=== PATIENT | female | born 1940 | race Caucasian/White ===

== ENCOUNTER 2022-09-27 09:19 | Outpatient (CLI) | payer MEDICARE, OTHER | END 2022-09-27 23:59 | disposition home or self-care (01) | LOC: LAB 09:19 | PROVIDERS: ATTEND Dentist Oral and Maxillofacial Surgery | DX: Z01.812 Encounter for preprocedural laboratory examination (principal); Z20.822 Contact with and (suspected) exposure to COVID-19 | CPT/HCPCS: U0003; C9803 ==

== ENCOUNTER 2022-10-01 05:33 | Inpatient (IN) | payer MEDICARE, OTHER ==
[2022-10-01] MEDS ORDERED: LIDOCAINE 2%-EPI 1:100,000 30 ML VIAL ONE (06:43)
[2022-10-01] MEDS ORDERED: VANCOMYCIN 1 GM VIAL ONE (06:43)
[2022-10-01] MEDS ORDERED: dexaMETHasone SOD PHOSPHATE 10 MG/ML VIAL ONE (06:44)
[2022-10-01] MEDS ORDERED: OXYMETAZOLINE HCL NASAL SPRAY 30 ML BOTTLE NS ONE (07:16)
[2022-10-01] MEDS ORDERED: FENTANYL PF 100MCG/2ML AMPUL ONE (07:16)
[2022-10-01] MEDS ORDERED: ROCURONIUM BROMIDE 50 MG/5 ML ONE (07:16)
[2022-10-01] MEDS ORDERED: FAMOTIDINE/PF INJ 20 MG/2 ML VIAL IV ONE (07:16)
--- NOTE | 2022-10-01 07:40 | NUR ---
OPENING NOTE DAY SURGERY: PATIENT IN SURGERY NOT IN THERE ROOM AT THIS TIME.
--- NOTE | 2022-10-01 07:50 | NUR ---
MS CONVEYOR BELT REPAIRER NOTE PATIENT ARRIVED TO THE UNIT AT AROUND 0550, TOGETHER WITH HER , AMBULATORY. PATIENT IS SCHEDULED FOR SURGERY TODAY UNDER DR. ROLLE. ALERT AND ORIENTED X4. ABLE TO COMMUNICATE NEEDS WITH THE STAFFS. DENIES ANY PAIN OR DISCOMFORT. EXPLAINED ADMISSION PROCESS. CONSENT FOR PROCEDURE SIGNED AND SECURED. VITALS TAKEN AND WNL. STARTED IV LING ON RIGHT FOREARM 20G-SL. ALL BELONGINGS AND VALUABLES WERE TAKEN BY H ER JASBIR. MAINTAINED ON NPO. SAFETY MEASURES IN PLACE. KEPT BED IN LOCKED AND IN LOW POSITION. SIDE RAILS UP X2. ADVISED TO USE THE CALL LIGHT WHEN IN NEED OF ASSISTANCE. ALL NURSING NEEDS ATTENDED. ENDORSEMENT GIVEN TO RAVEN LEVY. PATIENT WAS PICKED UP AT AROUND 0700, IN STABLE CONDITION.
[2022-10-01] MEDS ORDERED: HYDROMORPHONE 1 MG/1 ML DISP.SYRIN ONE (10:03)
--- NOTE | 2022-10-01 11:20 | NUR ---
POST OP NOTE DAY SURGERY: RECEIVED PATIENT VIA BED FROM THE OR. REPORT WAS GIVEN BY CAREN FAJARDO. PATIENT A/O x4 ABLE TO MAKE NEEDS KNOWN. ORIENTED TO ROOM AND CALL LIGHT, ACCOMPANIED BY . ON ROOM AIR BREATHING EVEN AND UNLABORED. NO SOB OR DISTRESS NOTED. SKIN IS INTACT. IV ACCESS RFA G#20 SL. VITAL SIGNS BP 130/65, P 90,OS 98%, T. 99. M[place]IB[place]A/ SURGICAL SITE; NO S/S OF ACTIVE BLEEDING. ICE PACKED BEING HELD AROUND THE MOUTH BY PATIENT FOR PAIN MANAGEMENT. PATIENT VOID X2 BRP, AMBULATORY MINIMAL ASSIST. PATIENT COMPLAINS OF PAIN AND NAUSEA. PAIN MANAGEMENT POST OP ORDERS IN PLACE. CLEAR BILATERAL LUNG SOUNDS AND HYPOACTIVE BOWEL SOUNDS. FALL AND SAFETY PRECAUTIONS IN PLACE: BED LOCKED AND AT THE LOWEST POSITION, SRx2, CALL LIGHT WITH IN REACH. Addendum: 10/01/22 at 1156 by JOVITA SALDAÑA LVN CHILD AND ADOLESCENT PSYCHIATRIST NOTE
[2022-10-01] MEDS ORDERED: IV NS 0.9% 500 ML IV PRN (12:00)
[2022-10-01] MEDS ORDERED: ONDANSETRON HCL/PF 4 MG/2 ML VIAL IV PRN (12:00)
[2022-10-01] MEDS ORDERED: HYDROMORPHONE 1 MG/1 ML DISP.SYRIN IV PRN (12:00)
[2022-10-01] MEDS ORDERED: LATA2.5D15 EACHEYE (13:52)
[2022-10-01] MEDS ORDERED: ALPR0.5T8 PO (13:52)
[2022-10-01] MEDS ORDERED: SERT50TA PO (13:52)
[2022-10-01] MEDS ORDERED: ROPI1TAB6 PO (13:52)
[2022-10-01] MEDS ORDERED: SERT25TA PO (13:52)
[2022-10-01] MEDS ORDERED: DORZ10DR10 EACHEYE (13:52)
[2022-10-01] MEDS ORDERED: LOVA40TA2 PO (13:52)
--- NOTE | 2022-10-01 17:25 | NUR ---
DISCHARGE NOTE DAY SURGERY: PATIENT IS DISCHARGED IN A MEDICALLY STABLE CONDITION. A/O X4 ON ROOM AIR. V/S TAKEN, STABLE AND RECORDED. IV ACCESS WAS REMOVED, CATHETER TIP INTACT AND PRESSURE DRESSING WAS APPLIED, NO S/S OF BLEEDING. NAME ARM BAND WAS REMOVED. SKIN INTACT. NO S/S OF BLEEDING OF ACTIVE . BELONGING LIST SIGNED AND PLACED IN CHART. HEALTH TEACHING AND INSTRUCTION GIVEN AND VERBALIZED UNDERSTANDING. PATIENT LEFT VIA WHEELCHAIR ACCOMPANIED BY FAMILY AND VALET CASHIER TO THE LOBBY, LEFT VIA PRIVATE CAR. CHARGE NURSE MADE AWARE OF DISCHARGE.
== END 2022-10-01 17:57 | disposition home or self-care (01) | DRG 496 ==
LOC: DS 05:33 → MED 05:34
PROVIDERS: ADMIT Dentist Oral and Maxillofacial Surgery; ATTEND Dentist Oral and Maxillofacial Surgery
PROC: 0N8T0ZZ Division of Right Mandible, Open Approach (ICD-10-PCS; principal; 2022-10-01)
PROC: 0N5T0ZZ Destruction of Right Mandible, Open Approach (ICD-10-PCS; 2022-10-01)
PROC: 0NRT07Z Replacement of Right Mandible with Autologous Tissue Substitute, Open Approach (ICD-10-PCS; 2022-10-01)
PROC: 0NST04Z Reposition Right Mandible with Internal Fixation Device, Open Approach (ICD-10-PCS; 2022-10-01)
PROC: 0NSV04Z Reposition Left Mandible with Internal Fixation Device, Open Approach (ICD-10-PCS; 2022-10-01)
PROC: 0N8T0ZZ Division of Right Mandible, Open Approach (ICD-10-PCS; 2022-10-01)
PROC: 0CQ7XZZ Repair Tongue, External Approach (ICD-10-PCS; 2022-10-01)
DX: M84.48XK Pathological fracture, other site, subsequent encounter for fracture with nonunion (principal); K91.72 Accidental puncture and laceration of a digestive system organ or structure during other procedure; M87.9 Osteonecrosis, unspecified; Y83.8 Other surgical procedures as the cause of abnormal reaction of the patient, or of later complication, without mention of misadventure at the time of the procedure; M27.2 Inflammatory conditions of jaws; Y70.3 Surgical instruments, materials and anesthesiology devices (including sutures) associated with adverse incidents; Y92.234 Operating room of hospital as the place of occurrence of the external cause; D48.1 Neoplasm of uncertain behavior of connective and other soft tissue; M26.9 Dentofacial anomaly, unspecified; D16.5 Benign neoplasm of lower jaw bone
CPT/HCPCS: 82962-TC; 87081-TC; 88305-TC; 88311-TC; C1713; G0378; J0360; J1100; J1170; J2405; J2704; J2765; J3010; J3370; J3490

== ENCOUNTER 2023-04-22 09:41 | Inpatient (IN) | payer MEDICARE, OTHER ==
[~2023-04-22] VITALS: Ht 152.4 cm; Wt 52.6 kg
[~2023-04-22 09:41] MED LIST: ALPR0.5T8 PO; DORZ10DR10 EACHEYE; LATA2.5D15 EACHEYE; LOVA40TA2 PO; ROPI1TAB6 PO; SERT25TA PO; SERT50TA PO
[2023-04-22 10:10] VITALS: BP 131/68; TEMP 97.5; O2SAT 100
[2023-04-22] MEDS ORDERED: LIDOCAINE 2%-EPI 1:100,000 30 ML VIAL ONE (10:52)
[2023-04-22] MEDS ORDERED: VANCOMYCIN 1 GM VIAL ONE (10:53)
[2023-04-22] MEDS ORDERED: hydrALAZINE HCL IV 20 MG VIAL IV PRN (13:00)
[2023-04-22] MEDS ORDERED: ALPRAZOLAM 0.5 MG TABLET PO PRN (13:00)
[2023-04-22] MEDS ORDERED: ACETAMINOPHEN 325 MG TABLET PO PRN (15:00)
[2023-04-22] MEDS ORDERED: IV NS 0.9% 1,000 ML IV PRN (15:00)
[2023-04-22 16:00] VITALS: BP 141/67; TEMP 97.8; O2SAT 97
[2023-04-22] MEDS ORDERED: HYDROMORPHONE 1 MG/1 ML DISP.SYRIN IV PRN (17:00)
[2023-04-22] MEDS ORDERED: ropiniROLE 0.5 MG TABLET PO SCH (17:00)
[2023-04-22] MEDS ORDERED: LATANOPROST EYE DROP 0.005% 2.5 ML BOTTLE EACHEYE SCH (22:00)
[2023-04-22] MEDS ORDERED: SERTRALINE HCL 25 MG TABLET PO SCH (22:00)
[2023-04-23] MEDS ORDERED: SERTRALINE HCL 50 MG TABLET PO SCH (09:00)
[2023-04-23] MEDS ORDERED: ATORVASTATIN 10 MG TABLET PO SCH (09:00)
[2023-04-23] MEDS ORDERED: DORZOLAMIDE OPTH 2% 10 ML BOTTLE EACHEYE SCH (09:00)
== END 2023-04-22 19:00 | disposition home or self-care (01) | DRG 908 ==
LOC: DS 09:41 → MED 09:43
PROVIDERS: ADMIT Dentist Oral and Maxillofacial Surgery; ATTEND Dentist Oral and Maxillofacial Surgery
PROC: 0NPW04Z Removal of Internal Fixation Device from Facial Bone, Open Approach (ICD-10-PCS; principal; 2023-04-22)
PROC: 0NPW0JZ Removal of Synthetic Substitute from Facial Bone, Open Approach (ICD-10-PCS; 2023-04-22)
PROC: 0WB30ZX Excision of Oral Cavity and Throat, Open Approach, Diagnostic (ICD-10-PCS; 2023-04-22)
PROC: 0NBT0ZZ Excision of Right Mandible, Open Approach (ICD-10-PCS; 2023-04-22)
PROC: 0NUT0JZ Supplement Right Mandible with Synthetic Substitute, Open Approach (ICD-10-PCS; 2023-04-22)
DX: T86.831 Bone graft failure (principal); T84.59XA Infection and inflammatory reaction due to other internal joint prosthesis, initial encounter; Y83.2 Surgical operation with anastomosis, bypass or graft as the cause of abnormal reaction of the patient, or of later complication, without mention of misadventure at the time of the procedure; M27.2 Inflammatory conditions of jaws; Z79.899 Other long term (current) drug therapy; Y83.8 Other surgical procedures as the cause of abnormal reaction of the patient, or of later complication, without mention of misadventure at the time of the procedure; Y92.009 Unspecified place in unspecified non-institutional (private) residence as the place of occurrence of the external cause; D48.19 Other specified neoplasm of uncertain behavior of connective and other soft tissue; E78.5 Hyperlipidemia, unspecified; F32.A Depression, unspecified
CPT/HCPCS: G0378; J0461; J1100; J1170; J2704; J3370; J3490; J7040